=== PATIENT | female | born 1985 | race Caucasian/White ===

== ENCOUNTER 2018-02-27 14:05 | Emergency (ER) | payer OTHER, SELFPAY ==
[~2018-02-27] VITALS: Ht 172.7 cm; Wt 113.2 kg
[2018-02-27 14:20] VITALS: BP 132/86
[2018-02-27] MEDS ORDERED: LIDOCAINE 1%, 10ML INFIL ONE (14:30)
[2018-02-27] MEDS ORDERED: LIDOCAINE-MPF 1%, 2ML ONE (15:09)
[2018-02-27] MEDS ORDERED: BACITRACIN ZINC OINT 500U/GM, 0.9 GM ONE (15:49)
== END 2018-02-27 16:17 | disposition home or self-care (01) ==
LOC: ED 16:04
DX: S61.412A Laceration without foreign body of left hand, initial encounter (principal); W26.0XXA Contact with knife, initial encounter; Y93.89 Activity, other specified; Y92.69 Other specified industrial and construction area as the place of occurrence of the external cause; Y99.0 Civilian activity done for income or pay
CPT/HCPCS: 12041; 99284

== ENCOUNTER 2018-07-18 12:20 | Emergency (ER) | payer SELFPAY ==
[~2018-07-18] VITALS: Ht 172.7 cm; Wt 100.0 kg
--- NOTE | 2018-07-18 12:48 | NUR ---
PT PRESENTS TO ED WITH WITH C/O OF DIZZYNESS WHILE IN ELEVATOR. STATES IT FEELS LIKE HER BALANCE IS OFF AND HAS NO DEPTH PRECEPTION. PT ALSO STATES SOME NUMBNESS IN THE TIPS OF HER FINGERS AND NAUSEA. PT BREATHING REGULAR AND UNLABORED AT THIS TIME. APPEARS TO BE SLIGHTLY ANXIOUS. MIDL AMOUNT OF DISTRESS NOTED. EKG COMPLETED. 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
[2018-07-18] MEDS ORDERED: ONDANSETRON ODT 4 MG ONE (13:14)
[2018-07-18] MEDS ORDERED: ONDANSETRON ODT 4 MG PO ONE (13:30)
[2018-07-18 13:39] LABS: CULTURE INDICATED? YES; MICROSCOPIC INDICATED
[2018-07-18 13:45] LABS: ALANINE AMINOTRANSFERASE 19 U/L (12-78); ALBUMIN 3.7 g/dL (3.4-5.0); ANION GAP 5 mmol/L (5-15); CALCIUM 8.9 mg/dL (8.5-10.1); CHLORIDE 108 mmol/L (98-107)
[2018-07-18 13:49] LABS: ALKALINE PHOSPHATASE 74 U/L (45-117); BILIRUBIN,TOTAL 0.3 mg/dL (0.2-1.0); TOTAL PROTEIN 7.4 g/dL (6.4-8.2)
--- NOTE | 2018-07-18 13:52 | NUR ---
PATENT TO AND FROM BATHROOM. WATER GIVEN TO PATIENT. UPDATED ON PLAN OF CARE AND AWAITING ALL RESULTS
[2018-07-18 14:04] LABS: BASOPHILS # (AUTO) 0.02 x10^3/uL (0-0.1); BASOPHILS % (AUTO) 0 % (0-1); EOSINOPHILS # (AUTO) 0.12 x10^3/uL (0-0.4); EOSINOPHILS % (AUTO) 1 % (1-7); LYMPHOCYTES # (AUTO) 2.13 x10^3/uL (1-3.4); LYMPHOCYTES % (AUTO) 21 % (22-44); MD NO; MEAN CORPUSCULAR HEMOGLOBIN 29.5 pg (27.0-34.8); MEAN CORPUSCULAR HGB CONC 32.9 g/dL (32.4-35.8); MEAN CORPUSCULAR VOLUME 89.4 fL (80-100); MEAN PLATELET VOLUME 8.6 fL (7.4-10.4); MONOCYTES % (AUTO) 5 % (2-9); NEUTROPHILS # (AUTO) 7.55 x10^3/uL (1.8-6.8); NEUTROPHILS % (AUTO) 73 % (42-75); PLATELET COUNT 246 x10^3/uL (130-400); RED BLOOD COUNT 4.74 x10^6/uL (3.82-5.3); RED CELL DISTRIBUTION WIDTH 14.1 % (9.6-15.2)
--- NOTE | 2018-07-18 14:18 | NUR ---
FEELING BETTER WITH THE ZOFRAN
[2018-07-18 15:05] VITALS: BP 120/57
== END 2018-07-18 15:08 | disposition home or self-care (01) ==
LOC: ED 14:54
DX: R55 Syncope and collapse (principal); R11.0 Nausea; M54.5 Low back pain; R42 Dizziness and giddiness
CPT/HCPCS: 36415; 80053; 81001; 83690; 84703; 85025; 87086; 93005; 99284; Q0162

== ENCOUNTER 2019-02-25 17:32 | Emergency (ER) | payer MEDICAID, OTHER ==
[~2019-02-25] VITALS: Ht 172.7 cm; Wt 100.0 kg
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
--- NOTE | 2019-02-25 17:53 | NUR ---
TASK RN: PT ALSO DENIES LOC OR FALLING. BEDSIDE REPORT TO YUE SALDANA. 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
--- NOTE | 2019-02-25 18:07 | NUR ---
dr. [email or web address] in room now.
[2019-02-25] MEDS ORDERED: SODIUM CHLORIDE FLUSH 10ML SYR IVF ONE (18:30)
[2019-02-25] MEDS ORDERED: SODIUM CHLORIDE 0.9% 1,000ML IVBOLUS ONE (18:30)
[2019-02-25 18:40] LABS: BASOPHILS # (AUTO) 0.03 x10^3/uL (0-0.1); BASOPHILS % (AUTO) 0 % (0-1); EOSINOPHILS # (AUTO) 0.28 x10^3/uL (0-0.4); EOSINOPHILS % (AUTO) 3 % (1-7); LYMPHOCYTES # (AUTO) 1.89 x10^3/uL (1-3.4); LYMPHOCYTES % (AUTO) 22 % (22-44); MD NO; MEAN CORPUSCULAR HEMOGLOBIN 30.3 pg (27.0-34.8); MEAN CORPUSCULAR HGB CONC 33.7 g/dL (32.4-35.8); MEAN CORPUSCULAR VOLUME 89.7 fL (80-100); MEAN PLATELET VOLUME 8.8 fL (7.4-10.4); MONOCYTES # (AUTO) 0.54 x10^3/uL (0.2-0.8); MONOCYTES % (AUTO) 6 % (2-9); NEUTROPHILS # (AUTO) 6.02 x10^3/uL (1.8-6.8); NEUTROPHILS % (AUTO) 69 % (42-75); PLATELET COUNT 265 x10^3/uL (130-400); RED BLOOD COUNT 4.46 x10^6/uL (3.82-5.3); RED CELL DISTRIBUTION WIDTH 14.2 % (9.6-15.2)
[2019-02-25 18:55] LABS: ALBUMIN 3.2 g/dL (3.4-5.0); ANION GAP 6 mmol/L (5-15); CALCIUM 8.6 mg/dL (8.5-10.1); CHLORIDE 106 mmol/L (98-107)
[2019-02-25 19:02] LABS: ALANINE AMINOTRANSFERASE 19 U/L (12-78); ALKALINE PHOSPHATASE 75 U/L (45-117); BILIRUBIN,TOTAL 0.3 mg/dL (0.2-1.0); CREATININE 0.69 mg/dL (0.55-1.02); TOTAL PROTEIN 7.1 g/dL (6.4-8.2)
[2019-02-25 20:23] VITALS: BP 132/80
== END 2019-02-25 20:26 | disposition home or self-care (01) ==
LOC: ED 19:53
DX: R55 Syncope and collapse (principal); J01.10 Acute frontal sinusitis, unspecified
CPT/HCPCS: 36415; 80053; 84443; 84703; 85025; 93005; 99284; J7030

== ENCOUNTER 2019-03-12 14:36 | Emergency (ER) | payer MEDICAID, OTHER ==
[~2019-03-12] VITALS: Ht 172.7 cm; Wt 115.5 kg
[2019-03-12] MEDS ORDERED: FLUORESCEIN OPHTHALMIC 1 MG STRIP ONE ×2 (15:39→15:54)
[2019-03-12] MEDS ORDERED: PROPARACAINE OPHTH 0.5%, 15ML ONE ×2 (15:39→15:54)
[2019-03-12] MEDS ORDERED: OXYcodone/APAP 5/325MG TABLET ONE (15:54)
[2019-03-12] MEDS ORDERED: OXYcodone/APAP 5/325MG TABLET PO ONE (16:00)
--- NOTE | 2019-03-12 16:01 | NUR ---
DISCUSSED ALLERGIES AND REACTIONS RELATED TO MEDS ORDERED W ERP AND THE PT ALL IN AGREEMENT TO PROCEED WITH MEDS AND MONITOR
[2019-03-12 16:05] LABS: BASOPHILS # (AUTO) 0.04 x10^3/uL (0-0.1); BASOPHILS % (AUTO) 1 % (0-1); EOSINOPHILS # (AUTO) 0.18 x10^3/uL (0-0.4); EOSINOPHILS % (AUTO) 2 % (1-7); LYMPHOCYTES % (AUTO) 19 % (22-44); MD NO; MEAN CORPUSCULAR HEMOGLOBIN 30.2 pg (27.0-34.8); MEAN CORPUSCULAR HGB CONC 33.5 g/dL (32.4-35.8); MEAN CORPUSCULAR VOLUME 90.1 fL (80-100); MEAN PLATELET VOLUME 8.5 fL (7.4-10.4); MONOCYTES % (AUTO) 3 % (2-9); NEUTROPHILS # (AUTO) 6.88 x10^3/uL (1.8-6.8); NEUTROPHILS % (AUTO) 76 % (42-75); PLATELET COUNT 296 x10^3/uL (130-400); RED BLOOD COUNT 4.98 x10^6/uL (3.82-5.3); RED CELL DISTRIBUTION WIDTH 13.5 % (9.6-15.2)
[2019-03-12 16:11] LABS: ANION GAP 7 mmol/L (5-15); CALCIUM 8.6 mg/dL (8.5-10.1); CHLORIDE 106 mmol/L (98-107); CREATININE 0.85 mg/dL (0.55-1.02)
--- NOTE | 2019-03-12 16:25 | NUR ---
Does pt have IV for CT exam?
[2019-03-12] MEDS ORDERED: ONDANSETRON ODT 4 MG ONE (16:39)
[2019-03-12] MEDS ORDERED: ONDANSETRON ODT 4 MG PO ONE (17:00)
--- NOTE | 2019-03-12 18:51 | NUR ---
REPORT RECEIVED FROM YUE ASCENCIO
[2019-03-12 19:02] VITALS: BP 108/59
--- NOTE | 2019-03-12 19:04 | NUR ---
PT RESTING WITH MOTHER AT BS FOR SUPPORT. PT REPORTS DECREASED PAIN AFTER BEING MEDICATED. PT UPDATED ON POC. PT DENIES FURTHER NEEDS AT THIS TIME.
--- NOTE | 2019-03-12 19:27 | NUR ---
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
[2019-03-12] MEDS ORDERED: OMNIPAQUE 350 MG/ML, 100ML BOTTLE ONE (19:42)
== END 2019-03-12 19:21 ==
LOC: ED 16:54
DX: H57.11 Ocular pain, right eye (principal)
CPT/HCPCS: 36415; 70460; 80048; 85025; 99284; Q0162; Q9967

== ENCOUNTER 2019-12-14 18:23 | Emergency (ER) | payer MEDICAID, OTHER ==
[~2019-12-14] VITALS: Ht 172.7 cm; Wt 121.0 kg
[2019-12-14 18:53] LABS: MICROSCOPIC AUTO
[2019-12-14 18:54] LABS: HCG UR SG 1.002 (1.003-1.030)
[2019-12-14 19:08] LABS: BASOPHILS % (AUTO) 0 % (0-1); EOSINOPHILS % (AUTO) 1 % (1-7); LYMPHOCYTES % (AUTO) 16 % (22-44); MEAN CORPUSCULAR HEMOGLOBIN 29.8 pg (27.0-34.8); MEAN CORPUSCULAR HGB CONC 33.8 g/dL (32.4-35.8); MEAN PLATELET VOLUME 8.3 fL (7.4-10.4); MONOCYTES % (AUTO) 8 % (2-9); NEUTROPHILS % (AUTO) 75 % (42-75); PLATELET COUNT 253 x10^3/uL (130-400); RED BLOOD COUNT 4.72 x10^6/uL (3.82-5.3); RED CELL DISTRIBUTION WIDTH 13.6 % (9.6-15.2)
[2019-12-14 19:15] LABS: ANION GAP 5 mmol/L (5-15); CALCIUM 8.7 mg/dL (8.5-10.1); CHLORIDE 104 mmol/L (98-107); CREATININE 0.85 mg/dL (0.55-1.02)
[2019-12-14 19:17] LABS: MD NO
--- NOTE | 2019-12-14 20:32 | NUR ---
CC OF ABD PAIN IN LUQ 7/10 PAIN FOR 7 DAYS. PT STATES IT FEELS "SIMILAR TO DWAYNE ROJAS CONTRACTIONS THAT MOVES TO MY BACK". PT DENIES ANY CHANCE OF BEING . PT STATES PAIN IS WORSE WHEN LAYING DOWN. PT RESTING IN GURNEY, CALL LIGHT WITHIN REACH, VSS.
[2019-12-14] MEDS ORDERED: IBUPROFEN 600 MG TABLET PO ONE (21:30)
[2019-12-14] MEDS ORDERED: IBUPROFEN 600 MG TABLET ONE (21:42)
--- NOTE | 2019-12-14 22:08 | NUR ---
MEDICATED PER EMAR. PT RESTING COMFORTABLY
[2019-12-14 22:47] VITALS: BP 129/71
--- NOTE | 2019-12-14 22:48 | NUR ---
BACK FROM US, DENIES NEEDS, VSS
== END 2019-12-14 23:35 | disposition home or self-care (01) ==
LOC: ED 18:53
DX: N30.00 Acute cystitis without hematuria (principal); R10.9 Unspecified abdominal pain; R19.7 Diarrhea, unspecified; R10.30 Lower abdominal pain, unspecified
CPT/HCPCS: 36415; 76830; 80048; 81001; 81025; 85025; 87086; 99284

== ENCOUNTER 2019-12-25 14:42 | Emergency (ER) | payer OTHER ==
[~2019-12-25] VITALS: Ht 172.7 cm; Wt 120.0 kg
[2019-12-25 15:42] LABS: MICROSCOPIC INDICATED
[2019-12-25 15:53] LABS: BASOPHILS % (AUTO) 1 % (0-1); EOSINOPHILS % (AUTO) 2 % (1-7); LYMPHOCYTES % (AUTO) 17 % (22-44); MEAN CORPUSCULAR HEMOGLOBIN 29.8 pg (27.0-34.8); MEAN CORPUSCULAR HGB CONC 34.1 g/dL (32.4-35.8); MEAN PLATELET VOLUME 7.7 fL (7.4-10.4); MONOCYTES % (AUTO) 8 % (2-9); NEUTROPHILS % (AUTO) 73 % (42-75); PLATELET COUNT 326 x10^3/uL (130-400); RED CELL DISTRIBUTION WIDTH 13.6 % (9.6-15.2)
[2019-12-25 15:55] LABS: MD NO
[2019-12-25 16:06] LABS: ANION GAP 5 mmol/L (5-15); CALCIUM 8.4 mg/dL (8.5-10.1); CHLORIDE 106 mmol/L (98-107)
[2019-12-25 16:11] LABS: ALANINE AMINOTRANSFERASE 32 U/L (12-78); ALKALINE PHOSPHATASE 76 U/L (45-117); BILIRUBIN,TOTAL 0.3 mg/dL (0.2-1.0); CREATININE 0.83 mg/dL (0.55-1.02)
[2019-12-25 18:05] VITALS: BP 119/76
[2019-12-25] MEDS ORDERED: OMNIPAQUE 350 MG/ML, 100ML BOTTLE ONE (18:05)
[2019-12-25] MEDS ORDERED: ONDANSETRON 2MG/ML, 2ML ONE (18:08)
[2019-12-25] MEDS ORDERED: MORPHINE SULFATE 4 MG/ML, 1ML ONE (18:09)
[2019-12-25] MEDS ORDERED: ONDANSETRON 2MG/ML, 2ML IVPush ONE (18:30)
[2019-12-25] MEDS ORDERED: MORPHINE SULFATE 4 MG/ML, 1ML IVPush PRN (18:30)
== END 2019-12-25 18:59 | disposition home or self-care (01) ==
LOC: ED 18:36
DX: N83.292 Other ovarian cyst, left side (principal); R00.0 Tachycardia, unspecified
CPT/HCPCS: 36415; 74177; 80053; 81001; 84703; 85025; 87086; 96374; 96375; 99285; J2270; J2405; Q9967

== ENCOUNTER 2020-11-07 08:12 | Emergency (ER) | payer OTHER ==
[~2020-11-07] VITALS: Ht 172.7 cm; Wt 95.0 kg
[2020-11-07 08:14] VITALS: BP 128/58
--- NOTE | 2020-11-07 08:22 | NUR ---
[facility] [employer] NON-EMERGENT CONTACTED BY REQUEST OF PT. [employer] MADE AWARE OF LOCATION. OFFICER WILL BE BY TO TAKE REPORT.
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
--- NOTE | 2020-11-07 08:27 | NUR ---
PT POSTIONED TO COMFORT IN BED, PROVIDED WARM BLANKETS, ATTACHED TO MONITORS. VSS.
[2020-11-07] MEDS ORDERED: ACETAMINOPHEN 325 MG TABLET ONE (08:55)
[2020-11-07] MEDS ORDERED: KETOROLAC 30 MG/1 ML ONE (08:55)
[2020-11-07] MEDS ORDERED: KETOROLAC 30 MG/1 ML IM ONE (09:00)
[2020-11-07] MEDS ORDERED: ACETAMINOPHEN 325 MG TABLET PO ONE (09:00)
--- NOTE | 2020-11-07 09:00 | NUR ---
pt to ct.
--- NOTE | 2020-11-07 09:17 | NUR ---
PT BACK FROM CT. UP TO BATHROOM WITH STEADY GAIT. [facility] AT BEDSIDE TO GET REPORT.
--- NOTE | 2020-11-07 09:34 | NUR ---
[facility] TO BEDSIDE FOR REPORT
--- NOTE | 2020-11-07 10:38 | NUR ---
Patient given discharge instructions and they have confirmed that they understand the instructions. Patient ambulatory with steady gait. NAD, all questions answered appropriately, denies additional needs at this time. No personal belongings left in room after discharge.
== END 2020-11-07 10:39 | disposition home or self-care (01) ==
LOC: ED 08:59
DX: S16.1XXA Strain of muscle, fascia and tendon at neck level, initial encounter (principal); S09.90XA Unspecified injury of head, initial encounter; Y04.8XXA Assault by other bodily force, initial encounter; Y93.89 Activity, other specified; Y92.89 Other specified places as the place of occurrence of the external cause; Y99.8 Other external cause status
CPT/HCPCS: 70450; 72125; 96372; 99285; J1885